=== PATIENT | male | born 1980 | race Caucasian/White ===

== ENCOUNTER 2016-09-27 17:55 | Inpatient (IN) | payer MEDICAID ==
--- NOTE | ~2016-09-27 | DS ---
Unit #: [id number] #: [id number] Patient: VANESSA BENOIT [id number] [facility] [address] [place] [address] [id number] MR#: [id number] NAME: VANESSA BENOIT ROOM: [facility] Age: 36 Sex: M Admission Date: 09/27/2016 : 1980 Discharge Date: 09/30/2016 Attending Physician: Randal Johnson M.D. Primary Care Physician: Primary Care Physician No DISCHARGE SUMMARY REASON FOR ADMISSION Benzodiazepine abuse, methadone abuse, depression. DIAGNOSTIC STUDIES LABORATORY RESULTS: Remarkable for urine drug screen positive for benzodiazepine, marijuana, and amphetamine. HOSPITAL COURSE The patient was admitted to inpatient unit on 09/27/2016 and discharged on 09/30/2016. The patient was treated on the inpatient unit with group therapy, individual therapy, medication management, detox protocol. The patient responded well with the above modalities of treatment. Subsequently, the patient was discharged with a plan to follow up in outpatient program. DISCHARGE MEDICATIONS None. DISCHARGE DIAGNOSES Psychiatric: Opioid use disorder, severe, F11.20; methamphetamine use disorder, severe, F15.20; cannabis abuse disorder, moderate, F12.20; mood disorder, not otherwise specified, F32.9. Secondary diagnosis: Deferred. Medical diagnosis: Asthma. Stressors: Psychosocial stressor. DISCHARGE INSTRUCTIONS The patient to follow up in outpatient clinic as per director of social services. CONDITION ON DISCHARGE The patient was pleasant and cooperative. Denied any psychotic symptom or any suicidal ideation. PROGNOSIS Guarded. DIET AND ACTIVITY As tolerated. Unit #: [id number] #: [id number] Patient: VANESSA BENOIT Dictated by... Martín Woody/alonso TD: 10/02/2016 01:04 JOB #: [id number] DISCHARGE SUMMARY X Randal Johnson MD X DISCHARGE SUMMARY
--- NOTE | ~2016-09-27 | PN ---
Unit #: [id number] #: [id number] Patient: VANESSA LYNCH [id number] [facility] [address] [place] [address] [id number] MR#: [id number] NAME: VANESSA LYNCH ROOM: [facility] Age: 36 Sex: M Admission Date: 09/27/2016 : 1980 Attending Physician: Randal Johnson M.D. Admitting Physician: Randal Johnson M.D. Primary Care Physician: Primary Care Physician Delphine WATKINS NOTES DATE OF SERVICE: 09/28/2016 DISCUSSION Vanessa Lynch is a 36-year-old male, seen on 09/28/2016. The patient was interviewed, chart reviewed, and obtained information from nursing staff. The patient was compliant and cooperative. Mood was sad, dysphoric, withdrawn, isolative, flat affect, guarded. The patient is adjusting fairly well to unit rules. DIAGNOSTIC STUDIES The patient's labs showed RPR negative, CBC with diff remarkable for neutrophil of 24, lymphocytes 56. Urine drug screen is positive for benzodiazepine, marijuana and amphetamine. CMP; BUN 8, total protein 5.7. Thyroid function tests within normal range. REVIEW OF SYSTEMS Complete review of systems unremarkable. MENTAL STATUS EXAMINATION General appearance; the patient is dressed casually. Attention span and concentration, fair. Oriented in place and person. Mood and affect, sad, dysphoric, anxious. Speech, regular rate. Thought process, goal directed. The patient denied any thoughts of harming self or others or any psychotic symptom. Recent and remote memory, poor. Insight and judgment, poor. DIAGNOSIS Polysubstance abuse. ASSESSMENT AND PLAN Advised to continue with current medication and therapeutic protocol. We will monitor response to medication and make further adjustment of medication. Dictated by... Martín Woody/destinil TD: 09/30/2016 04:52 JOB #: [id number] Unit #: [id number] #: [id number] Patient: VANESSA LYNCH TIMI PROGRESS NOTES X Randal Johnson MD PROGRESS NOTE
--- NOTE | ~2016-09-27 | HP ---
Unit #: [id number] #: [id number] Patient: VANESSA BENOIT [id number] [facility] [address] [place] [address] [id number] I MR#: [id number] NAME: VANESSA BENOIT ROOM: P178 Age: 36 Sex: M Admission Date: 09/27/2016 : 1980 Attending Physician: Randal Johnson M.D. Admitting Physician: Randal Johnson M.D. Primary Care Physician: Primary Care Physician No HISTORY AND PHYSICAL HISTORY OF PRESENT ILLNESS Vanessa is a 36 year old admitted to [facility] because of his poly illicit substance abuse which includes methamphetamine, heroin and benzodiazepines. He shoots most of his drugs. PAST MEDICAL HISTORY 1. Long history of illicit substance abuse to include IV drugs. 2. Asthma. PAST SURGICAL HISTORY Nothing reported. ALLERGIES No known drug allergies. SOCIAL HISTORY He smokes one pack per day. Denies alcohol. Admits to a long history of illicit substance abuse to include IV drugs. FAMILY HISTORY Medically noncontributory. REVIEW OF SYSTEMS CONSTITUTIONAL: No fever or chills. HEENT: Denies any sore throat, ear pain or runny nose. CARDIOVASCULAR: Denies chest pain, irregular heart rhythm or palpitations. CHEST: Denies shortness of breath or cough. No hemoptysis. GASTROINTESTINAL: Denies nausea, vomiting, diarrhea or chronic constipation. ENDOCRINE: Denies history of increased thirst or urination. No recent significant weight loss or gain. GENITOURINARY: Denies dysuria, frequency, or hematuria. SKIN: Denies any rashes. HEMATOLOGIC: Denies history of increased bleeding or bruising. MUSCULOSKELETAL: Denies any hot, swollen joints. No generalized muscle pain. NEUROLOGIC: Denies problems with vision or speech. No frequent, severe headaches. No numbness, tingling or weakness in any extremities. Denies loss of bladder or bowel control. CURRENT MEDICATIONS Unit #: [id number] #: [id number] Patient: VANESSA BENOIT 1. Detox protocol 2. Proventil inhaler PHYSICAL EXAMINATION GENERAL: Alert, well-nourished, in no apparent distress. VITAL SIGNS: Blood pressure 134/84, heart rate 52, respirations 16, temperature 98.6. WEIGHT: 200 pounds. HEIGHT: 6'0". SKIN: Warm and dry without rash or lesion. HEENT: Normocephalic. TMs not viewed. Oral and nasal passages clear. Conjunctivae clear. Pupils equal, round and reactive to light and accommodation. Extraocular movements intact. NECK: Supple without lymphadenopathy or thyromegaly. HEART: Regular rate and rhythm without murmur. LUNGS: Clear. ABDOMEN: Soft, nontender. : Not done. EXTREMITIES: No evidence of cyanosis, clubbing or edema. Moves all extremities without focal deficit. NEUROLOGICAL: Grossly within normal limits. Cranial Nerves: II: Visual don are intact. III, IV AND : Extraocular movements are intact. Pupils are equal, round and reactive to light. V: Facial sensation is grossly normal. VII: Facial movements and expression are normal. VIII: Auditory acuity grossly intact. IX, X: Uvula is midline. Phonation is normal. XI: Patient shrugs shoulders and turns head normally. XII: Tongue protrudes in the midline. Sensory and Motor Function: Sensory and motor sensation is grossly normal. Motor: moves all extremities well. Coordination: Gait is normal. Deep Tendon Reflexes: Intact. IMPRESSION Psychiatric admission RECOMMENDATIONS PSYCHIATRIC: Per psychiatrist. MEDICAL: I see no contraindications to participating in facility's activities. MEDICAL PROGNOSIS Good. MEDICAL CONDITION Stable. Dictated by... Diandra GuanASuha-Nirav. for Martín Shields/jessica TD: 09/29/2016 02:17 Unit #: [id number] #: [id number] Patient: VANESSA BENOIT JOB #: [id number] HISTORY AND PHYSICAL X Martha Lira X HISTORY AND PHYSICAL
--- NOTE | ~2016-09-27 | PA ---
Unit #: [id number] #: [id number] Patient: VANESSA LYNCH [id number] [facility] [address] [place] [address] [id number] I MR#: [id number] NAME: VANESSA LYNCH ROOM: [facility] Age: 36 Sex: M Admission Date: 09/27/2016 : 1980 Date of Assessment: 09/28/2016 Attending Physician: Randal Johnson M.D. Admitting Physician: Randal Johnson M.D. Primary Care Physician: Primary Care Physician No PSYCHIATRIC ASSESSMENT INFORMANTS The patient reliability, fair; chart reliability, good. CHIEF COMPLAINT Opioid use and depression. HISTORY OF PRESENT ILLNESS Mr. Vanessa Lynch is a 36-year-old male, seen on with the above-mentioned complaint. The patient reported that he was trying to get some help. He reported using methamphetamine, heroin, and Xanax. The patient reported that he has been using for the last one year and a half. The patient reported that for the last couple of weeks he has been using daily. The patient reported using 2 g daily methamphetamine and 0.5 g of heroin IV. The patient reported Xanax use. The patient has a history of previous treatment through outpatient counseling. No history of any inpatient treatment. The patient denied any suicidal or homicidal ideation. Denied any psychotic symptom. Needing inpatient admission at this time for psychiatric stabilization. PAST PSYCHIATRIC HISTORY Remarkable for history of outpatient treatment. FAMILY HISTORY/SOCIAL HISTORY The patient's family psychiatric illness is remarkable for history of substance abuse and mental illness in the family. Details unknown at this time. No known history of any abuse. MEDICAL HISTORY Remarkable for asthma. Musculoskeletal; muscle strength and tone, no atrophy or abnormal movement. Gait normal. MEDICATION HISTORY None. ALLERGIES No known drug allergies. SUBSTANCE ABUSE HISTORY The patient reported tobacco use, age of onset 18; marijuana, age of onset 18; LSD, age of onset 18; opioid, age of onset 28; amphetamine, age of onset 24; and prescription medication, 30. The patient has a history of blackouts, history of withdrawal symptom, and IV drug use. Complaining of diarrhea, irritability, and sleep problems. Unit #: [id number] #: [id number] Patient: VANESSA LYNCH REVIEW OF SYSTEMS HEENT: Eyes, clear. Ears, nose, mouth, and throat; clear. CARDIOVASCULAR: Unremarkable. RESPIRATORY: Unremarkable. GI: Unremarkable. unremarkable. SKIN: Unremarkable. LYMPH NODE: Unremarkable. NEUROLOGIC: Unremarkable. ENDOCRINE: Unremarkable. HEMATOLOGIC: Unremarkable. ALLERGIC/IMMUNOLOGIC: Unremarkable. MUSCULOSKELETAL: Muscle strength and tone, no atrophy or abnormal movement. Gait normal. MENTAL STATUS EXAMINATION CONSTITUTIONAL: Measurement of vital signs; temperature 98.4, pulse 84, respirations 16, and blood pressure 121/81. Height 6 feet and weight 200 pounds. GENERAL APPEARANCE: The patient dressed casually. The patient did not show any facial deformity. MUSCULOSKELETAL: Please see above. PSYCHIATRIC EXAMINATION Description of speech; regular rate, normal volume, normal articulation, coherent. Description of thought process, goal directed. Description of association, intact. Description of abnormal psychotic thinking; the patient denied any hallucinations or delusions, but mood lability, substance abuse. Description of the patient's judgment: Concerning everyday activity, poor. Social situation, poor. Concerning psychiatric condition, poor. Complete mental status examination; oriented in time, place, and person. Recent and remote memory, fair. Attention span and concentration, fair. Language; able to name object, repeat phrases. Fund of knowledge; aware of current event, passive vocabulary intact. Mood and affect, sad and dysphoric. Insight and judgment were fair to poor. ASSETS AND LIABILITIES Assets; the patient is articulate, able to take care of his ADL. Liability, history of substance abuse. ADMITTING DIAGNOSES Psychiatric: 1. Opioid use disorder, severe, F11.20. 2. Methamphetamine use disorder, severe, F15.20. 3. Cannabis abuse, moderate, F12.20. 4. Mood disorder, not otherwise specified, F32.9. Secondary diagnosis: Deferred. Medical diagnosis: Asthma. Stressors: Psychosocial stressors. PSYCHIATRIC PLAN, TREATMENT GOAL, AND DISCHARGE PLAN 1. Advised to admit the patient on the inpatient unit. Provide safe, supportive, and structured environment. Unit #: [id number] #: [id number] Patient: VANESSA LYNCH 2. Ordered labs; CBC, CMP, UA, and UDS. 3. Advised to start the patient on detox protocol and detox monitoring. The patient is to be monitored closely. If needed, consider further adjustment of medication. 4. Treatment goal is to attain euthymic mood, gain insight into his problem, and learn coping skills. 5. Discharge plan: Plan is to stabilize the patient and consider followup in outpatient program. ESTIMATED LENGTH OF STAY 3 to 5 days. Dictated by... Martín Woody/alonso TD: 09/28/2016 22:04 JOB #: [id number] PSYCHIATRIC ASSESSMENT X Randal Johnson MD X PSYCHIATRIC ASSESSMENT
--- NOTE | ~2016-09-27 | PN ---
Unit #: [id number] #: [id number] Patient: VANESSA LYNCH [id number] [facility] [address] [place] [address] [id number] I MR#: [id number] NAME: VANESSA LYNCH ROOM: P1 Age: 36 Sex: M Admission Date: 09/27/2016 : 1980 Attending Physician: Randal Johnson M.D. Admitting Physician: Randal Johnson M.D. Primary Care Physician: Primary Care Physician Delphine WATKINS NOTES DATE 09/29/2016 DISCUSSION Vanessa Lynch is a 36-year-old male seen on 09/29/2016. Patient interviewed. Chart reviewed. Obtained information from nursing staff. Patient was compliant, cooperative. Mood sad, dysphoric, flat affect, guarded, paranoid. Patient still withdrawn, isolative, flat, sad, dysphoric, anxious, nervous. Patient reported still feeling loopy, tired, withdrawn. Patient received p.r.n. Ativan. Denied any psychotic symptoms. Complete review of system unremarkable. MENTAL STATUS EXAMINATION General appearance, patient dressed casually. Attention span, concentration fair. Oriented in place and person. Mood and affect sad, dysphoric, flat. Speech monotone. Thought process concrete. Patient denied any thoughts of harming self or others but guarded. Recent and remote memory poor. Insight and judgement poor. DIAGNOSES 1. Mood disorder NOS. 2. Polysubstance abuse. ASSESSMENT/PLAN Advised to continue with current medication and therapeutic protocol. Will monitor response to medication and make further adjustment of medication. Dictated by... Martín Woody/leticia TD: 09/30/2016 22:42 JOB #: [id number] Unit #: [id number] #: [id number] Patient: VANESSA LYNCH ALEXANDRATJ PROGRESS NOTES X Randal Johnson MD PROGRESS NOTE
[2016-09-28 09:41] LABS: URINE APPEARANCE CLEAR; URINE BILIRUBIN NEG (NEG); URINE BLOOD NEG (NEG); URINE COLOR YELLOW; URINE GLUCOSE NEG (NEG); URINE KETONE TRACE (NEG); URINE LEUKOCYTE ESTERASE NEG (NEG); URINE NITRATE NEG (NEG); URINE PH 7.5 (5-8); URINE PROTEIN NEG (NEG); URINE SPECIFIC GRAVITY 1.026 (1.003-1.035)
[2016-09-28 09:52] LABS: BASOPHIL# 0.1 X10e3 (0-0.3); BASOPHIL% 0.9 % (0-2.5); EOSINOPHIL# 0.2 X10e3 (0-0.7); EOSINOPHIL% 3.5 % (0.0-7.0); HEMATOCRIT 43.5 % (38.0-50.0); HEMOGLOBIN 14.4 gm/dL (13.0-16.0); LYMPHOCYTE# 3.7 X10e3 (1.0-3.5); LYMPHOCYTE% 58.7 % (17.0-45.0); MEAN CELL VOLUME 90.4 FL (83-96); MEAN CORPUSCULAR HGB CONC 33.2 g/dL (30-36); MEAN PLATELET VOLUME 7.1 FL (6.5-11.5); MONOCYTE# 0.7 X10e3 (0-1.0); NEUTROPHIL# 1.6 X10e3 (1.5-7.1); NEUTROPHIL% 25.9 % (40-75); PLATELET COUNT 290 X10e3 (140-420); RED BLOOD COUNT 4.81 X10e (3.90-5.60); RED CELL DISTRIBUTION WIDTH 13.5 % (11.0-15.5); THYROID STIMULATING HORMONE 0.08 uIU/ml (0.34-5.60); WHITE BLOOD COUNT 6.2 X10e3 (4.0-10.5)
[2016-09-28 09:54] LABS: DIFF IND YES
[2016-09-28 09:59] LABS: FREE THYROXIN (T4) 0.77 ng/dL (0.58-1.64)
[2016-09-28 10:02] LABS: ALBUMIN SERUM 3.6 g/dL (3.5-5.0); ALKALINE PHOSPHATASE 54 U/L (32-92); ALT (SGPT) 29 U/L (10-40); AST (SGOT) 16 U/L (10-42); BILIRUBIN,TOTAL 1.5 mg/dL (0.2-2.0); BLOOD UREA NITROGEN 8 mg/dL (9-23); BUN/CREATININE RATIO 8.88; CALCIUM SERUM 8.5 mg/dL (8.4-10.2); CARBON DIOXIDE 25 mmol/L (22-31); CHLORIDE 109 mmol/L (100-111); CREATININE SERUM 0.9 mg/dL (0.6-1.4); GLOM FILT RATE Estimated ABOVE60 mL/min (>60); GLUCOSE FASTING 87 mg/dL (70-110); POTASSIUM 4.2 mmol/L (3.5-5.1); PROTEIN TOTAL SERUM 5.7 g/dL (6.0-8.3); SODIUM 137 mmol/L (135-145)
[2016-09-28 10:43] LABS: AMPHETAMINE POS (NEG); BARBITURATES NEG (NEG); BENZODIAZEPINES POS (NEG); COCAINE NEG (NEG); MARIJUANA POS (NEG); OPIATES NEG (NEG); TRICYCLIC ANTIDEPRESSANTS NEG (NEG); U METHADONE NEG (NEG)
[2016-09-28 11:00] LABS: PLATELET ESTIMATE NORMAL (NORMAL)
== END 2016-09-30 12:25 | disposition home or self-care (01) | DRG 897 ==
LOC: P1E 17:55
PROVIDERS: Psychiatry & Neurology Psychiatry
DX: F11.20 Opioid dependence, uncomplicated (principal); F15.20 Other stimulant dependence, uncomplicated; F12.20 Cannabis dependence, uncomplicated; F32.9 Major depressive disorder, single episode, unspecified; J45.909 Unspecified asthma, uncomplicated; F17.200 Nicotine dependence, unspecified, uncomplicated; F39 Unspecified mood [affective] disorder
CPT/HCPCS: 80053; 80307; 81003; 84439; 84443; 85025; 86592